=== PATIENT | male | born 1995 | race Two or more races ===

== ENCOUNTER 2020-12-16 21:19 | Inpatient (IN) | payer MEDICAID ==
[~2020-12-16] VITALS: Ht 170.2 cm; Wt 69.5 kg
[~2020-12-16 21:19] MED LIST: ALBU18
[2020-12-16 23:21] LABS: Basophils # (auto) 0.1 10 ^3/uL (0-0.2); Basophils % (auto) 0.6 % (0.0-2.0); Eosinophils # (auto) 0 10 ^3/uL (0-0.8); Eosinophils % (auto) 0.1 % (0.0-7.0); Hematocrit 50.1 % (41.0-53.0); Hemoglobin 17.3 g/dL (13.5-17.5); Lymphocytes % (auto) 13.6 % (10.0-50.0); Mean Corpuscular Hemoglobin 31.2 pg (28.0-32.0); Mean Corpuscular Hgb Conc. 34.6 g/dL (32.0-36.0); Mean Corpuscular Volume 90.2 fL (80.0-100.0); Monocytes # (auto) 1.4 10 ^3/uL (0-1.3); Neutrophils # (auto) 11.5 10 ^3/uL (1.6-8.6); Neutrophils % (auto) 76.7 % (37.0-80.0); Nucleated Red Blood Cells % 0.2 %; Platelet Count (auto) 367 10^3/uL (140-450); Red Blood Cells 5.55 10^6/uL (4.5-5.90); Red Cell Distribution Width 12.6 % (11.8-14.3)
[2020-12-16 23:37] LABS: INR 1.08 (0.9-1.15); Partial Thromboplastin Time 31.4 sec (23.0-31.2)
[2020-12-16 23:40] LABS: Albumin 3.6 g/dL (3.4-5.0); Calcium 8.9 mg/dL (8.5-10.1)
[2020-12-16] MEDS ORDERED: IODIXANOL 320MG/ML 100ML BTL IV ONE (23:40)
[2020-12-16 23:42] LABS: BUN/Creatinine Ratio 9.1
[2020-12-16 23:45] LABS: Bilirubin, Total 0.6 mg/dL (0.2-1.0); Total Protein 8.3 g/dL (6.4-8.2)
[2020-12-17 00:56] LABS: Urine Bacteria FEW /hpf (None Seen); Urine Blood TRACE /uL (Negative); Urine Mucus FEW (None Seen); Urine WBC 6 /hpf (0 - 3)
[2020-12-17] MEDS ORDERED: PIPERACILLIN-TAZOB 3.375GM 100 ML IV ONE (01:00)
[2020-12-17] MEDS ORDERED: SODIUM CHLORIDE 0.9% 1,000 ML IV ONE (01:00)
[2020-12-17 01:04] LABS: Urine Specific Gravity > 1.050 (1.001-1.035)
[2020-12-17] MEDS: SODIUM CHLORIDE 0.9% 1,000 ML IV SCH ×2 (01:47→11:40)
[2020-12-17] MEDS: ONDANSETRON HCL 4 MG/2 ML VIAL IV PRN ×2 (02:32→06:55)
[2020-12-17] MEDS: MORPHINE SULFATE 4 MG/ML SYR/VIAL IV PRN ×5 (02:32→21:35)
[2020-12-17] MEDS: CLINDAMYCIN 600MG IV 50 ML IV SCH ×3 (06:30→21:34)
[2020-12-17] MEDS: PIPERACILLIN-TAZOB 3.375GM 100 ML IV SCH ×3 (06:30→16:58)
[2020-12-17 13:00] VITALS: BP 113/64
[2020-12-17 16:50] VITALS: BP 107/60
[2020-12-17 17:00] VITALS: BP 89/55
[2020-12-17 22:00] VITALS: BP 110/62
[2020-12-17] MEDS ORDERED: ACETAMINOPHEN 325 MG TAB PO PRN (22:15)
[2020-12-18] MEDS: SODIUM CHLORIDE 0.9% 1,000 ML IV SCH ×2 (00:12→09:48)
[2020-12-18] MEDS: PIPERACILLIN-TAZOB 3.375GM 100 ML IV SCH ×4 (00:12→17:54)
[2020-12-18 05:00] VITALS: BP 106/52
[2020-12-18] MEDS: CLINDAMYCIN 600MG IV 50 ML IV SCH ×3 (05:09→21:20)
[2020-12-18] MEDS: MORPHINE SULFATE 4 MG/ML SYR/VIAL IV PRN ×4 (05:10→21:21)
[2020-12-18 06:18] LABS: Basophils # (auto) 0.1 10 ^3/uL (0-0.2); Basophils % (auto) 0.6 % (0.0-2.0); Eosinophils # (auto) 0.1 10 ^3/uL (0-0.8); Eosinophils % (auto) 0.4 % (0.0-7.0); Hematocrit 39.6 % (41.0-53.0); Lymphocytes # (auto) 1.6 10 ^3/uL (0.4-5.4); Lymphocytes % (auto) 13.2 % (10.0-50.0); Mean Corpuscular Hemoglobin 31.6 pg (28.0-32.0); Mean Corpuscular Hgb Conc. 35.5 g/dL (32.0-36.0); Mean Corpuscular Volume 89.2 fL (80.0-100.0); Monocytes # (auto) 1.3 10 ^3/uL (0-1.3); Monocytes % (auto) 10.8 % (0.0-12.0); Neutrophils # (auto) 9.2 10 ^3/uL (1.6-8.6); Nucleated Red Blood Cells % 0.1 %; Platelet Count (auto) 277 10^3/uL (140-450); Red Blood Cells 4.44 10^6/uL (4.5-5.90); Red Cell Distribution Width 11.9 % (11.8-14.3); White Blood Cell 12.3 10^3/uL (4.4-10.8)
[2020-12-18 06:39] LABS: BUN/Creatinine Ratio 8.4; Calcium 8.4 mg/dL (8.5-10.1); Potassium 3.7 mmol/L (3.5-5.1)
[2020-12-18] MEDS ORDERED: MEPERIDINE HCL (25 MG/ML) 1ML VIAL ONE (07:35)
[2020-12-18] MEDS ORDERED: fentaNYL CITRATE 100 MCG/2 ML VL ONE (07:35)
[2020-12-18] MEDS ORDERED: DexAMETHasone SOD PHOS 10MG/1ML VIAL INJ ONE (07:36)
[2020-12-18] MEDS ORDERED: MIDAZOLAM HCL 1MG/1ML-2 ML VIAL ONE (07:36)
[2020-12-18] MEDS ORDERED: PROPOFOL 10 MG/ML 20 ML IV ONE (07:36)
[2020-12-18 08:00] VITALS: BP 99/58
[2020-12-18] MEDS ORDERED: ePHEDrine SULFATE 50 MG/ML AMP IV PRN (09:00)
[2020-12-18] MEDS ORDERED: ONDANSETRON HCL 4 MG/2 ML VIAL IV PRN (09:00)
[2020-12-18] MEDS ORDERED: MIDAZOLAM HCL 1MG/1ML-2 ML VIAL IV PRN (09:00)
[2020-12-18] MEDS ORDERED: MORPHINE SULFATE 4 MG/ML SYR/VIAL IV PRN (09:00)
[2020-12-18] MEDS ORDERED: LABETALOL HCL 5 MG/ML 4ML SYRINGE IV PRN (09:00)
[2020-12-18] MEDS ORDERED: HYDROmorphone HCL 2 MG/ML VL IV PRN (09:00)
[2020-12-18 13:00] VITALS: BP 98/60
[2020-12-18 17:24] VITALS: BP 95/53
[2020-12-18 22:00] VITALS: BP 109/56
[2020-12-19] MEDS: PIPERACILLIN-TAZOB 3.375GM 100 ML IV SCH ×4 (00:05→17:04)
[2020-12-19] MEDS: SODIUM CHLORIDE 0.9% 1,000 ML IV SCH (00:45)
[2020-12-19] MEDS: MORPHINE SULFATE 4 MG/ML SYR/VIAL IV PRN ×5 (03:16→22:20)
[2020-12-19 05:00] VITALS: BP 106/59
[2020-12-19] MEDS: CLINDAMYCIN 600MG IV 50 ML IV SCH ×3 (05:34→22:20)
[2020-12-19 08:00] VITALS: BP 107/62
[2020-12-19 09:00] VITALS: BP 107/62
[2020-12-19] MEDS ORDERED: ACETAMINOPHEN 325 MG TAB PO PRN (11:30)
[2020-12-19] MEDS: DOCUSATE SOD 100 MG CAP PO SCH ×2 (11:34→22:20)
[2020-12-19] MEDS: IBUPROFEN 400 MG TAB PO PRN ×2 (11:35→18:08)
[2020-12-19 13:00] VITALS: BP 100/45
[2020-12-19 17:00] VITALS: BP 92/47
[2020-12-19 22:00] VITALS: BP 102/57
[2020-12-20] MEDS: PIPERACILLIN-TAZOB 3.375GM 100 ML IV SCH ×2 (00:20→07:05)
[2020-12-20] MEDS: MORPHINE SULFATE 4 MG/ML SYR/VIAL IV PRN ×4 (04:43→22:16)
[2020-12-20 05:00] VITALS: BP 102/47
[2020-12-20] MEDS: CLINDAMYCIN 600MG IV 50 ML IV SCH (06:06)
[2020-12-20 09:00] VITALS: BP 92/54
[2020-12-20] MEDS: DOCUSATE SOD 100 MG CAP PO SCH ×2 (09:41→21:32)
[2020-12-20] MEDS: IBUPROFEN 400 MG TAB PO PRN (09:41)
[2020-12-20] MEDS ORDERED: LACTULOSE 20Gm/30ML SOLN PO PRN (11:30)
[2020-12-20 12:23] VITALS: BP 95/54
[2020-12-20] MEDS: ERTAPENEM SOD INJ 1 GM in SODIUM CHL 0.9% 50 ML IV SCH (13:20)
[2020-12-20 17:00] VITALS: BP 102/58
[2020-12-20 22:00] VITALS: BP 102/41
[2020-12-21] MEDS: MORPHINE SULFATE 4 MG/ML SYR/VIAL IV PRN ×4 (04:49→22:10)
[2020-12-21 05:00] VITALS: BP 99/54
[2020-12-21 06:42] LABS: Basophils # (auto) 0.1 10 ^3/uL (0-0.2); Basophils % (auto) 0.7 % (0.0-2.0); Eosinophils # (auto) 0 10 ^3/uL (0-0.8); Eosinophils % (auto) 0.5 % (0.0-7.0); Hematocrit 42.8 % (41.0-53.0); Hemoglobin 14.9 g/dL (13.5-17.5); Lymphocytes # (auto) 2.7 10 ^3/uL (0.4-5.4); Mean Corpuscular Hemoglobin 31.3 pg (28.0-32.0); Mean Corpuscular Hgb Conc. 34.8 g/dL (32.0-36.0); Mean Corpuscular Volume 90.1 fL (80.0-100.0); Monocytes # (auto) 0.6 10 ^3/uL (0-1.3); Neutrophils # (auto) 5.6 10 ^3/uL (1.6-8.6); Neutrophils % (auto) 61.8 % (37.0-80.0); Nucleated Red Blood Cells % 0.1 %; Platelet Count (auto) 339 10^3/uL (140-450); Red Blood Cells 4.75 10^6/uL (4.5-5.90); Red Cell Distribution Width 12.2 % (11.8-14.3)
[2020-12-21 07:14] LABS: Potassium 3.8 mmol/L (3.5-5.1)
[2020-12-21 07:18] LABS: BUN/Creatinine Ratio 12.1; Calcium 8.3 mg/dL (8.5-10.1)
[2020-12-21 09:00] VITALS: BP 113/71
[2020-12-21] MEDS: ERTAPENEM SOD INJ 1 GM in SODIUM CHL 0.9% 50 ML IV SCH (10:02)
[2020-12-21] MEDS: DOCUSATE SOD 100 MG CAP PO SCH ×2 (10:02→21:31)
[2020-12-21 13:00] VITALS: BP 97/46
[2020-12-21 17:00] VITALS: BP 106/52
[2020-12-21 22:00] VITALS: BP 109/54
[2020-12-22 05:00] VITALS: BP 111/52
[2020-12-22] MEDS: MORPHINE SULFATE 4 MG/ML SYR/VIAL IV PRN (06:08)
[2020-12-22 07:11] LABS: Basophils # (auto) 0 10 ^3/uL (0-0.2); Basophils % (auto) 0.6 % (0.0-2.0); Eosinophils # (auto) 0.1 10 ^3/uL (0-0.8); Eosinophils % (auto) 0.8 % (0.0-7.0); Hematocrit 44.2 % (41.0-53.0); Hemoglobin 15.5 g/dL (13.5-17.5); Lymphocytes # (auto) 2.4 10 ^3/uL (0.4-5.4); Lymphocytes % (auto) 34.5 % (10.0-50.0); Mean Corpuscular Hemoglobin 31.3 pg (28.0-32.0); Mean Corpuscular Hgb Conc. 35.1 g/dL (32.0-36.0); Mean Corpuscular Volume 89.3 fL (80.0-100.0); Monocytes # (auto) 0.5 10 ^3/uL (0-1.3); Monocytes % (auto) 7.4 % (0.0-12.0); Neutrophils # (auto) 3.9 10 ^3/uL (1.6-8.6); Neutrophils % (auto) 56.7 % (37.0-80.0); Nucleated Red Blood Cells % 0.1 %; Platelet Count (auto) 385 10^3/uL (140-450); Red Blood Cells 4.95 10^6/uL (4.5-5.90); Red Cell Distribution Width 11.9 % (11.8-14.3); White Blood Cell 6.9 10^3/uL (4.4-10.8)
[2020-12-22 07:14] LABS: BUN/Creatinine Ratio 17.2; Calcium 8.7 mg/dL (8.5-10.1); Potassium 3.8 mmol/L (3.5-5.1)
[2020-12-22 09:00] VITALS: BP 98/53
[2020-12-22] MEDS: DOCUSATE SOD 100 MG CAP PO SCH (09:19)
[2020-12-22] MEDS: ERTAPENEM SOD INJ 1 GM in SODIUM CHL 0.9% 50 ML IV SCH (09:20)
[2020-12-22] MEDS ORDERED: LEVO-28 PO (11:48)
[2020-12-22] MEDS ORDERED: HYDR-4902 PO (11:48)
[2020-12-22 13:00] VITALS: BP 104/44
== END 2020-12-22 13:30 | disposition home or self-care (01) | DRG 710 ==
LOC: ER 21:22 → OVERFLOW 21:23 → TELE-WESTW 12-17 12:24 → WEST WING 12-18 04:50
PROVIDERS: ADMIT Nurse Practitioner; ATTEND Internal Medicine
PROC: 0D9P0ZZ Drainage of Rectum, Open Approach (ICD-10-PCS; principal; 2020-12-18 07:41)
DX: A41.51 Sepsis due to Escherichia coli [E. coli] (principal); K61.1 Rectal abscess; E87.1 Hypo-osmolality and hyponatremia; K59.00 Constipation, unspecified; I88.1 Chronic lymphadenitis, except mesenteric; Z20.822 Contact with and (suspected) exposure to COVID-19; J45.909 Unspecified asthma, uncomplicated; Z88.2 Allergy status to sulfonamides; Z16.12 Extended spectrum beta lactamase (ESBL) resistance
CPT/HCPCS: 36415; 74177; 76870; 80048; 80053; 81001; 85025; 85610; 85730; 86850; 86900; 86901; 87040; 87070; 87075; 87076; 87077; 87186; 87205; 87426; G0378; J1100; J1335; J2250; J2405; J2543; J2704; J3490; Q9967

== ENCOUNTER 2021-06-26 19:15 | Emergency (ER) | payer MEDICAID ==
[~2021-06-26] VITALS: Ht 167.6 cm; Wt 77.1 kg
[2021-06-26 19:15] VITALS: BP 138/84
[~2021-06-26 19:15] MED LIST changes: -ALBU18; +HYDR-4902 PO; +LEVO-28 PO
[2021-06-26] MEDS ORDERED: cefTRIAXone SOD 1,000 MG VL IM ONE (20:30)
[2021-06-26] MEDS ORDERED: AZITHROMYCIN 250 MG TAB PO ONE (20:30)
== END 2021-06-26 21:00 | disposition home or self-care (01) ==
LOC: ER 19:15
DX: Z20.2 Contact with and (suspected) exposure to infections with a predominantly sexual mode of transmission (principal); R30.0 Dysuria; R35.0 Frequency of micturition; Z79.2 Long term (current) use of antibiotics; Z79.899 Other long term (current) drug therapy; Z88.2 Allergy status to sulfonamides
CPT/HCPCS: 96372; 99283; J0696